=== PATIENT | male | born 1990 | race African-American/Black ===

== ENCOUNTER 2018-11-06 06:56 | Emergency (ER) ==
[2018-11-06 07:03] VITALS: BP 133/87; TEMP 101.1; BMI 24.7
--- NOTE | 2018-11-06 07:34 | ED.PDOC ---
General ED Provider: Dr. BENI PATRICIO Chief Complaint: Sore Throat Stated Complaint: 27 y old presentimg with a complaint of sore trhroat.Negative rapid strep Phx showing exsudate free mild posterior pharyngeal fluctulence with tonsills behind arches.Lungs are clear,Very little dry cough,Fever 101 with proportional tachy,no rub.Strikingly his bilateral orbital conjuctivae are very congested,erythematous red without an increased lacrimation,Nasal swab was added,. IMPRESSION-H,Flu possible especially with contact with small children, as a cause of coryza and even acute sinusitis.Moraxella and Strep,pneumoniae. further down the list.No systemic toxicity. Time Seen by Physician: 15:00 Mode of Arrival: Walk-In Information Source: Patient Exam Limitations: No limitations Nursing and Triage Documentation Reviewed and Agree: Yes Does patient meet sepsis criteria?: No System Inflammatory Response Syndrome: Not Applicable Sepsis Protocol: For patient's 13 years and over: Temp is 96.8 and below OR 101 and greater Pulse >90 BPM Resp >20/minute Acutely Altered Mental Status Are patient's symptoms suggestive of a new infection, such as: -Pneumonia -Skin, Soft Tissue -Endocarditis -UTI -Bone, Joint Infection -Implantable Device -Acute Abdominal Infection -Wound Infection -Meningitis -Blood Stream Catheter Infection -Unknown Respiratory Complaint Exam - Respiratory Complaint/Exam Onset/Duration: two days Symptoms Are: Still present Timing: Constant Initial Severity: Mild Current Severity: Mild Location: Throat Character: Reports: Dry cough Aggravating: Reports: None Alleviating: Reports: None Associated Signs and Symptoms: Reports: Fever, Chills, Sore throat Related History: Reports: Similar episode History of Healthcare-Acquired Pneumonia: No Related Surgical History: Reports: None Pulmonary Embolism Risk Factors: None Cardiac Risk Factors: Reports: None Tuberculosis Risk Factors: Reports: None Status Asthmaticus Risk Factors: Reports: None Home Oxygen Use: No Recent Stress Test: No Recent Echo/LV Function: No Current Antibiotic Use: No Respiratory Distress: None Inadequate Respiratory Effort: No Dysphagia Present: No Stridor Present: No JVD Present: No Accessory Muscle Use: No Retractions: Not Present Diminished Breath Sounds: No Grunting Respirations: No Kussmaul Respirations: No Differential Diagnoses: URI, Influenza Review of Systems - Review Of Systems Constitutional: Reports: Fever Eyes: Reports: No symptoms Ears, Nose, Mouth, Throat: Reports: No symptoms Respiratory: Reports: Other Cardiac: Reports: No symptoms GI: Reports: No symptoms : Reports: No symptoms Musculoskeletal: Reports: No symptoms Skin: Reports: No symptoms Neurological: Reports: No symptoms Endocrine: Reports: No symptoms Hematologic/Lymphatic: Reports: No symptoms All Other Systems: Reviewed and Negative Past Medical History - Past Medical History Previously Healthy: Yes Endocrine: Reports: None Cardiovascular: Reports: None Respiratory: Reports: Other Hematological: Reports: None Gastrointestinal: Reports: None Genitourinary: Reports: None Neuro/Psych: Reports: None Musculoskeletal: Reports: None Cancer: Reports: None - Surgical History General Surgical History: Reports: None - Family History Family History: Reports: None - Social History Smoking Status: Current every day smoker, Light tobacco smoker Hx Substance Use: No Alcohol Screening: Occasionally - Immunizations Tetanus Shot up to Date: Yes Influenza Vaccine within 12 Months: No Physical Exam - Physical Exam Appearance: Well-appearing Ill-appearing: Mild Pain Distress: None Eyes: SHANE, EOMI, Conjunctiva inflammed ENT: Ears normal, Nose normal Neck: Supple Respiratory: Airway patent, Breath sounds clear Cardiovascular: RRR, Pulses normal, No rub, No murmur GI/: Soft, Nontender, No masses, Bowel sounds normal Musculoskeletal: Normal strength, ROM intact, No edema, No calf tenderness Skin: Warm, Dry, Normal color Neurological: Sensation intact, Motor intact, Reflexes intact, Cranial nerves intact, Alert, Oriented Psychiatric: Affect appropriate Critical Care Note - Critical Care Note Total Time (mins): 0 Course - Course Orders, Labs, Meds: Lab Review 11/06/18 07:46 Influ A Molecular Assay Negative by naat Influ B Molecular Assay Negative by naat Orders Category Date Time Status MOLECULAR FLU A & B [FLU A/B MOLECULAR] Stat LAB 11/06/18 07:46 Completed RAPID STREP SCREEN [MOLECULAR GROUP A STREP] Stat LAB 11/06/18 07:[address] SINUSES W/O CONTRAST Stat RADS 11/06/18 07:47 Completed Vital Signs: Temp Pulse Resp BP Pulse Ox 11/06/18 06:59 101.1 F H 92 H 20 133/87 95 Departure - Departure Time of Disposition: 09:15 Disposition: HOME SELF-CARE Discharge Problem: Sinusitis due to Haemophilus influenzae Instructions: Ketotifen (Into the eye), Subconjunctival Hemorrhage (ED) Condition: Good Pt referred to PMD for follow-up: Yes IPMP verified?: No Additional Instructions: Naphazoline 0.025%/Pheniramine 0.3% ophtalmic gtt 3-4 times a day 1 drop each eye/conjunctival sa/,Augmentin 875/125mg tab BID x 10 days Oxymetazoline nasal spray-single spray in each nostril max bid and for no longer than 3 days,Mayrepeat after 5 days break.Avoid a direct facial-oculra and saliva proximity with small children if possible when symptomatic. Allergies/Adverse Reactions: Allergies No Known Drug Allergies Adverse Reaction (Verified 11/06/18 07:04) Home Medications: Ambulatory Orders 1 [No Reported Medications] 07/22/13 Disposition Discussed With: Patient, Family
--- NOTE | 2018-11-06 09:04 | CT ---
EXAM: CT of the sinuses without contrast History: Sore throat, fever and headache. Comparison: Sinus CT 02/28/2014 Technique: Multiplanar CT images through the sinuses were obtained without the administration of IV contrast Findings: Orbits are intact. The visualized intracranial contents demonstrate no grossly acute find ings. Evaluation of the surrounding soft tissues is limited due to the lack of contrast administrati on. Epiglottis is not thickened. Adenoid hypertrophy. No acute fracture or dislocation. Mastoid a ir cells are clear. Paranasal sinuses are clear. Nasal septum is bowed mildly to the right. Bilate ral ostiomeatal units are not occluded. There is soft tissue swelling along the right side of the no se. Impression: 1. No acute fracture. 2. Clear paranasal sinuses. 3. Adenoid hypertrophy. 4. Soft tissue swelling along the right side of the nose.
== END 2018-11-06 09:20 | disposition home or self-care (01) ==
LOC: ED 06:56
DX: J01.90 Acute sinusitis, unspecified (principal); B96.3 Hemophilus influenzae [H. influenzae] as the cause of diseases classified elsewhere
CPT/HCPCS: 87502; 87651; 99283